=== PATIENT | female | born 1935 | race Caucasian/White ===

== ENCOUNTER 2022-06-20 11:44 | Inpatient (IN) | payer MEDICARE ==
[~2022-06-20] VITALS: Ht 152.4 cm; Wt 38.1 kg
[2022-06-20 11:30] VITALS: BP 144/88
--- NOTE | 2022-06-20 11:35 | NUR ---
ADMISSION NOTE: ADMITTED AT APPROX 1130, A 86 YEARS OLD FEMALE TO [facility] ON A 5[address] FOR GD. PATIENT LIVES AT HOME ALONE. PATIENT HAS BEEN AGGRESSIVE , VERY AGITATED AND ANXIOUS. PATIENT PUSHED LPS OUT THE DOOR BEFORE ADVISEMENT COULD BE COMPLETED. PATIENT IS VERY NEEDY TO BE TRANSFER TO THE MHU FROM [facility]. PER HOLD, PATIENT WAS REFUSING MEDS AND CARE. UPON ADMISSION PATIENT IS CONFUSED AND DISORIENTED. SHE IS UNABLE TO BE REDIRECTED. WILL MONITOR. HER ADVISEMENT WAS GIVEN WELL HIS BOOKLET FOR PATIENT'S RIGHTS WHEN IN MENTAL HEALTH FACILITIES. PATIENT IS UNDER THE CARE OF DR ORTIZ HOWEVER, DR ORTIZ IS COVERING FOR DR CHARLI MCDONALD NOTES. WILL CONTINUE TO MONITOR.
[2022-06-20] MEDS ORDERED: LORAZEPAM 0.5 MG TABLET PO PRN (12:30)
[2022-06-20] MEDS ORDERED: MAGNESIUM HYDROXIDE 30 ML LIQUID UDC PO PRN (12:30)
[2022-06-20] MEDS ORDERED: TEMAZEPAM 7.5 MG CAPSULE PO PRN (12:30)
[2022-06-20] MEDS ORDERED: MAG HYDROX/AL HYDROX/SIMETH 30 ML LIQUID UDC PO PRN (12:30)
[2022-06-20] MEDS ORDERED: ZOLPIDEM 5 MG TABLET PO PRN (12:30)
[2022-06-20] MEDS ORDERED: ACETAMINOPHEN 325 MG TABLET PO PRN (12:30)
--- NOTE | 2022-06-20 14:00 | NUR ---
Pt was noted to be wearing a very soiled wig with numerous amanda pins. Patient's hair is matted and greasy and entangled with the wig. Pt is disheveled, with strong body odor. Unable to remove patient's wig due to hair being matted in one piece. Wig was removed by cutting some of the patient's hair. Patient tolerated well.
[2022-06-20 16:00] VITALS: BP 136/83
--- NOTE | 2022-06-20 19:00 | NUR ---
Received patient in her room, walking around the room, daughter at the station, telling staff the her mother is not on her original self, and stating she received medication from other hospital that not good for her. Daughter asking staff not to give any psych meds to her mother. Staff told daughter that its up to Psych MD will assess the patient and they will be notified if any new order. Patient alert but with confusion, uncooperative care and medication according to AM RN. Patient goes to other patient rooms, frequent visual check done. cont to monitor.
--- NOTE | 2022-06-20 20:00 | NUR ---
Pt is noted to have a bruise on her buttocks. Pt is refusing to take a picture, patient became combative.
--- NOTE | 2022-06-20 22:00 | NUR ---
Patient out from the room, goes to other patient room. assisted back to her room, refused to seat down in the chair and try to relax, patient look to her window and talking to self, appears responding to internal stimuli, offered food and water, refused to lay in bed, refused medication for sleep. cont to monitor.
--- NOTE | 2022-06-21 03:24 | NUR ---
Patient awake walking around her room, goes to the window, callling out for her daughter. patient uncooperative with medication and care, episode of cursing staff, when tries to take her back to her room, goes to other patient room, cont to reorient.
--- NOTE | 2022-06-21 06:59 | NUR ---
Patient did not sleep at all, patient occupied worrying about her daughter, and she state that she did not like men she's dating, Patient is delusional, and has paranoia about her safety, saying their a man keep coming in to her room, while no male staff working on this shift, refused medication and refused care. Patient stated that she doesn't have allergy to medication or food that she know about.
[2022-06-21 07:30] VITALS: BP 152/88
--- NOTE | 2022-06-21 09:55 | NUR ---
ALESSANDRA APS REPORT: This SW completed an APS report and placed a copy in the chart with further details. APS#[id number].
[2022-06-21] MEDS ORDERED: LORAZEPAM 0.5 MG TABLET PO PRN (10:15)
[2022-06-21] MEDS ORDERED: diphenhydrAMINE 25 MG/10 ML UDC PO PRN (10:15)
--- NOTE | 2022-06-21 11:32 | NUR ---
ALESSANDRA Initial Discharge Note: Pt currently resides at home with her located at [address] [id number] ([phone]). Per pt's daughter, Wang, she would like her mother to return home. ALESSANDRA will continue to work with pt, family and MD to ensure a safe and proper discharge plan.
[2022-06-21 11:44] LABS: ALANINE AMINOTRANSFERASE 128 U/L (14-59); ALKALINE PHOSPHATASE 82 U/L (50-136); ASPARTATE AMINOTRANSFERASE 40 U/L (15-37); BILIRUBIN,TOTAL 1.6 mg/dL (0.2-1.0); CARBON DIOXIDE 27 mmol/L (21-32); CHLORIDE 110 mmol/L (98-107); CREATININE 1.6 mg/dL (0.6-1.3); GLUCOSE 117 mg/dL (74-106); POTASSIUM 3.9 mmol/L (3.5-5.1); TOTAL PROTEIN, SERUM 6.8 g/dL (6.4-8.2); UREA NITROGEN, BLOOD 34 mg/dL (7-18)
--- NOTE | 2022-06-21 12:00 | NUR ---
Received patient in her room, walking around the room. Patient alert but with confusion, uncooperative with ADL care noted with poor appetite encourage to eat as much as she can. Patient was seen by DR Weldon with order for MRI of the brain without contrast arrangements was done Pt refused to go for MRI explain benefits pt continued to refused, frequent visual check done. cont to monitor.
[2022-06-21] MEDS: ENSURE WITH FIBER 237 ML LIQUID (CHOCOLATE) PO SCH ×2 (13:55→17:10)
[2022-06-21 16:00] VITALS: BP 156/94
[2022-06-21 20:06] VITALS: BP 139/73
[2022-06-21] MEDS ORDERED: MIRTAZAPINE 15 MG TABLET PO SCH (21:00)
--- NOTE | 2022-06-22 05:20 | NUR ---
Patient remains confused and wandering into other patients rooms even after re-education on the units rules. Pt was compliant early on this this shift, but after 2 hours in, pt became irritable, agitated, verbally abusive, and combative with staff trying to provide care.
--- NOTE | 2022-06-22 05:23 | NUR ---
At 2100 hours pt cooperatively took her Remeron 3.75mg on schedule. After 2 hours into shift, pt became labile, easily irritable, aggressive towards staff, and verbally abusive. Pt refused all care. Patient continues to wander into other pts rooms even after re-education of the rules of the unit. Pt is forgetful, and undirectable. Pt urinated in other patients rooms then wandering back into her room. Pt refuses to be cleaned and cared for. Daughter verbalized to charge nurse at the beginning of shift to not give her mother her scheduled medications. Pt is non-compliant with POC. Will continue to monitor.
[2022-06-22 07:30] VITALS: BP 151/86
[2022-06-22] MEDS: ENSURE WITH FIBER 237 ML LIQUID (CHOCOLATE) PO SCH ×2 (08:26→12:29)
--- NOTE | 2022-06-22 08:52 | NUR ---
ALESSANDRA Family Contact: ALESSANDRA returned pt's daughter's call Pheobe ([phone]) and left a voicemail for a call back and provided cotnact number for SW and nursing station.
--- NOTE | 2022-06-22 10:39 | NUR ---
Firearms Report: General Forecaster completed and submitted a [employer] firearms report for 5150 grave disability certifications. A copy of report has been placed in patient chart.
--- NOTE | 2022-06-22 12:01 | NUR ---
SW Family Contact: This SW spoke with pts daughters, Wang ([phone]) and Astrid via telephone with psychiatrist, Dr. Weldon on speaker phone. Patient does not have a DPOA or conservator. Dr. Weldon discussed the ending of the 72 hours hold and discussed in detail the options for the patients continuation of care. During this time, Wang interrupted Dr. Weldon multiple times in disagreement and appeared verbally abusive towards Dr. Weldon. Wang was not able to be redirected and proceeded to yell. Astrid apologized to Dr. Weldon. However, both sisters continued to argue with each other.
--- NOTE | 2022-06-22 12:16 | NUR ---
SW Discharge Update: This SW spoke with pts daughterNancy ([phone]) and Dr. Weldon via telephone on speaker. Dr. Weldon explained in detail regarding the reason for pts admission to the hospital. The hospital only had pts daughter, Chapin contact. Patient does not have a DPOA or conservator. Nancy stated she would like her mother to return home by [facility] transportation and she will continue to financially support her mother for groceries. Nancy stated she is not in contact with Elma and she expressed her anger with Elma to Dr. Weldon and this SW. Nancy stated she has sent Pheobe money monthly to help their mother with food, groceries and ensure patient is living in sanitary conditions which she has not done. Patient is alert to person and situation. Due to patient having her home keys and Nancy's assuming responsibility for the patients transportation, food and groceries, Dr. Weldon stated he will discharge the patient AMA in the families care. Nancy was grateful and agreeable with Dr. Trevizo plan. SW will proceed to work with Nancy on the transportation details and this SW arranged outpatient psychiatrist follow-up at [facility] located at [address] [place] [address] ([phone]) via teletherapy on the 2021 at 1:30PM confirmed by Ras in the front office. Nancy and patient are aware and agreeable.
--- NOTE | 2022-06-22 14:20 | NUR ---
SW Discharge Note: Pt will be discharged Home AMA to [address], [facility] [address] via [facility] transit [phone] at 3:30PM by flatbed driver, Randell. Pts daughterNancy [phone] confirmed transportation and is agreeable with the discharge plan discussed with psychiatrist, Dr. Weldon ([phone]) and this SW. Pt is aware and agreeable with discharge plan. Pt is alert and oriented x2 and is able to plan for self-care at this time by the financial assistance from her daughter, Nancy ([phone]) for food, groceries, and transportation. Pt denies any suicidal or homicidal ideation. Pt will follow-up with an outpatient psychiatrist assigned at [facility] located at [address] [place] [id number] ([phone]) via teletherapy on the 2021 at 1:30PM confirmed by Ras in the front office. Per Nancy, patient does not have a primary care doctor at this time. SW will refer pt to Dr. Mayorga located at [address] [place] [address] [address], [place] [address]; ([phone]). Patient presents with euthymic and congruent mood.
--- NOTE | 2022-06-22 16:01 | NUR ---
Received orders to discharge this patient to Home AMA to [address] [address] via [facility] transit [phone] at 3:30PM by dairy truck driver, Randell. Security and advanced nursing professor escorted patient to her transportation. Patient refuses treatment and is agreeable with discharge plans. All belongings, valuables, and medications were returned to patient. Patient denies SI/HI AH/VH, SOB, pain or any discomfort. Patient left the unit at 16:00. Reassurance given. Fall and safety precautions implemented.
== END 2022-06-22 16:00 | disposition left against medical advice (07) | DRG 885 ==
LOC: GPS 11:44
PROVIDERS: ADMIT Psychiatry & Neurology Psychiatry; ATTEND Nurse Practitioner Acute Care
DX: F39 Unspecified mood [affective] disorder (principal); N17.0 Acute kidney failure with tubular necrosis; G93.41 Metabolic encephalopathy; F03.918 Unspecified dementia, unspecified severity, with other behavioral disturbance; T76.91XA Unspecified adult maltreatment, suspected, initial encounter; E46 Unspecified protein-calorie malnutrition; Z68.1 Body mass index [BMI] 19.9 or less, adult; R74.01 Elevation of levels of liver transaminase levels; Z91.199 Patient's noncompliance with other medical treatment and regimen due to unspecified reason
CPT/HCPCS: 36415

== ENCOUNTER 2023-11-15 19:30 | Inpatient (IN) | payer MEDICARE, OTHER ==
[~2023-11-15] VITALS: Ht 147.3 cm; Wt 41.3 kg
[2023-11-15] MEDS ORDERED: CEPH500T PO (19:37)
[2023-11-15 20:09] LABS: BASOPHILS # (AUTO) 0.1 K/UL (0.0-0.2); BASOPHILS % (AUTO) 0.9 % (0.0-2.0); EOSINOPHILS # (AUTO) 0.2 K/uL (0.0-0.7); EOSINOPHILS % (AUTO) 1.6 % (0.0-7.0); HEMATOCRIT 41.7 % (31.2-41.9); HEMOGLOBIN 14.4 g/dL (10.9-14.3); LYMPHOCYTES # (AUTO) 1.7 K/uL (0.8-4.8); LYMPHOCYTES % (AUTO) 16.4 % (20.5-51.5); MEAN CORPUSCULAR HEMOGLOBIN 30.7 uug (24.7-32.8); MEAN CORPUSCULAR HGB CONC 35 g/dL (32.3-35.6); MEAN CORPUSCULAR VOLUME 89.1 fL (75.5-95.3); MONOCYTES # (AUTO) 0.7 K/uL (0.1-1.30); MONOCYTES % (AUTO) 6.8 % (0.0-11.0); NEUTROPHILS # (AUTO) 7.8 K/uL (1.8-8.9); NEUTROPHILS % (AUTO) 74.3 % (38.5-71.5); PLATELET COUNT (AUTO) 273 K/uL (179-408); RED BLOOD CELL COUNT(AUTO) 4.68 MIL/uL (3.63-4.92); RED CELL DISTRIBUTION WIDTH 13.6 % (12.3-17.7); WHITE BLOOD COUNT (AUTO) 10.4 K/uL (3.8-11.8)
[2023-11-15 20:16] LABS: BILIRUBIN,TOTAL 1.8 mg/dL (0.2-1.0); CALCIUM 9.1 mg/dL (8.5-10.1); POTASSIUM 4.3 mmol/L (3.5-5.1); TOTAL PROTEIN, SERUM 7.2 g/dL (6.4-8.2)
[2023-11-15 20:22] LABS: *BLOOD, URINE NEGATIVE (NEGATIVE); *COLOR,URINE YELLOW (YELLOW); *KETONES,URINE NEGATIVE (NEGATIVE); *PROTEIN,URINE 2+ (NEGATIVE); *UROBILINOGEN,URINE 0.2 E.U./dl (NORMAL); LEUKOCYTE ESTERASE ,URINE TRACE (NEGATIVE); NITRITE, URINE NEGATIVE (NEGATIVE); PH,URINE 5.5 (5.0-8.0); UGLUCOSE NEGATIVE (NEGATIVE)
[2023-11-15 20:29] LABS: *BILIRUBIN,URIN 1+ (NEGATIVE); *CLARITY,URINE SLIGHTLY HAZY (CLEAR)
[2023-11-15 20:57] LABS: RBC,URINE 0-3 /HPF (0-3)
[2023-11-15 20:58] LABS: BACTERIA,URINE MODERATE /HPF (NONE SEEN); WBC,URINE 20-50 /HPF (0-3)
[2023-11-15 20:59] LABS: SQUAMOUS EPITHELIAL CELL,UR FEW /HPF (NONE SEEN)
[2023-11-15] MEDS: BLOOD SUGAR DIAGNOSTIC 1 EACH STRIP VI ONE (21:45)
[2023-11-15] MEDS ORDERED: TEMAZEPAM 7.5 MG CAPSULE PO PRN (21:45)
[2023-11-15] MEDS ORDERED: MAGNESIUM HYDROXIDE 30 ML LIQUID UDC PO PRN (21:45)
[2023-11-15] MEDS ORDERED: ACETAMINOPHEN 325 MG TABLET PO PRN (21:45)
[2023-11-15 23:00] VITALS: BP 151/91; TEMP 98.6; O2SAT 98
[2023-11-16 07:30] VITALS: BP 151/67; TEMP 97.3; O2SAT 99
[2023-11-16] MEDS: CEphaleXIN 500 MG CAPSULE PO SCH (09:00)
[2023-11-16 16:39] VITALS: BP 154/84; TEMP 97.3; O2SAT 96
[2023-11-16 20:00] VITALS: BP 123/79; TEMP 97.7; O2SAT 98
[2023-11-16] MEDS: MIRTAZAPINE 15 MG TABLET PO SCH (20:31)
[2023-11-17 08:43] VITALS: BP 107/83; TEMP 97.6; O2SAT 98
[2023-11-17] MEDS: ENSURE ENLIVE (VAN) 240 ML LIQUID PO SCH (16:29)
[2023-11-17 16:49] VITALS: BP 143/76; TEMP 97.9; O2SAT 97
[2023-11-17 19:52] VITALS: BP 107/61; TEMP 98; O2SAT 96
[2023-11-18 08:43] VITALS: BP 132/86; TEMP 98.2; O2SAT 98
[2023-11-18 16:05] VITALS: BP 155/63; TEMP 98; O2SAT 98
[2023-11-18 19:56] VITALS: BP 130/64; TEMP 98.1; O2SAT 96
[2023-11-19 08:03] VITALS: BP 159/68; TEMP 98; O2SAT 100
[2023-11-19 08:22] LABS: BASOPHILS # (AUTO) 0.1 K/UL (0.0-0.2); EOSINOPHILS # (AUTO) 0.3 K/uL (0.0-0.7); EOSINOPHILS % (AUTO) 5.2 % (0.0-7.0); HEMATOCRIT 38.1 % (31.2-41.9); LYMPHOCYTES # (AUTO) 1.9 K/uL (0.8-4.8); LYMPHOCYTES % (AUTO) 34.1 % (20.5-51.5); MEAN CORPUSCULAR HEMOGLOBIN 30.7 uug (24.7-32.8); MEAN CORPUSCULAR HGB CONC 34 g/dL (32.3-35.6); MEAN CORPUSCULAR VOLUME 89.9 fL (75.5-95.3); MONOCYTES # (AUTO) 0.5 K/uL (0.1-1.30); MONOCYTES % (AUTO) 9.1 % (0.0-11.0); NEUTROPHILS # (AUTO) 2.9 K/uL (1.8-8.9); NEUTROPHILS % (AUTO) 50.6 % (38.5-71.5); PLATELET COUNT (AUTO) 210 K/uL (179-408); RED BLOOD CELL COUNT(AUTO) 4.24 MIL/uL (3.63-4.92); RED CELL DISTRIBUTION WIDTH 13.6 % (12.3-17.7); WHITE BLOOD COUNT (AUTO) 5.7 K/uL (3.8-11.8)
[2023-11-19 08:45] LABS: DIFFERENTIAL COMMENT 1
[2023-11-19 08:50] LABS: THYROID STIMULATING HORMONE 0.538 mIU/mL (0.358-3.740)
[2023-11-19 09:13] LABS: ALBUMIN 3.2 g/dL (3.4-5.0); BILIRUBIN,TOTAL 1.2 mg/dL (0.2-1.0); CALCIUM 8.6 mg/dL (8.5-10.1); MAGNESIUM 2.4 mg/dL (1.8-2.4); PHOSPHOROUS 4.1 mg/dL (2.5-4.9); POTASSIUM 3.9 mmol/L (3.5-5.1); TOTAL PROTEIN, SERUM 6.2 g/dL (6.4-8.2)
[2023-11-19 15:19] VITALS: BP 143/90; TEMP 98; O2SAT 100
[2023-11-19] MEDS: LORAZEPAM 0.5 MG TABLET PO PRN (20:06)
[2023-11-19 22:54] VITALS: BP 161/58; TEMP 98.2; O2SAT 99
[2023-11-20 13:09] VITALS: BP 126/83; TEMP 97.4; O2SAT 96
[2023-11-20 20:00] VITALS: BP 165/79; TEMP 98.4; O2SAT 94
[2023-11-20 20:31] VITALS: BP 138/82; O2SAT 98
[2023-11-21 08:08] VITALS: BP_SYST 102; BP_SYST 151; BP_DIAS 59; BP_DIAS 69; TEMP 98.2; O2SAT 96
[2023-11-21 15:27] VITALS: BP 157/70; TEMP 98.2; O2SAT 98
[2023-11-21 20:00] VITALS: BP 158/52; TEMP 98.3; O2SAT 99
[2023-11-22 08:03] VITALS: BP 109/90; TEMP 98.2; O2SAT 94
[2023-11-22] MEDS: MAG HYDROX/AL HYDROX/SIMETH 30 ML LIQUID UDC PO PRN (10:29)
== END 2023-11-22 12:45 | DRG 885 ==
LOC: EDBD → ER 19:31 → GPS 21:26 → MERGE 21:26
PROVIDERS: ADMIT Psychiatry & Neurology Psychosomatic Medicine
DX: F29 Unspecified psychosis not due to a substance or known physiological condition (principal); F03.93 Unspecified dementia, unspecified severity, with mood disturbance; N39.0 Urinary tract infection, site not specified; H91.93 Unspecified hearing loss, bilateral; M20.11 Hallux valgus (acquired), right foot; L84 Corns and callosities; M20.41 Other hammer toe(s) (acquired), right foot; R32 Unspecified urinary incontinence
CPT/HCPCS: 36415; 83735; 84100; 84443; 85025